=== PATIENT | male | born 1985 | race Caucasian/White ===

== ENCOUNTER 2017-08-14 14:52 | Emergency (ER) | payer SELFPAY ==
[2017-08-14 14:54] VITALS: BP 126/82; PULSE 109; RESP 17; TEMP 37.3; O2SAT 91; BMI 24.4
[2017-08-14 15:04] VITALS: O2SAT 95
--- NOTE | 2017-08-14 15:11 | RAD_ITS ---
STUDY: X-RAY CHEST REASON FOR EXAM: Male, 32 years old. Cough for 2 weeks. TECHNIQUE: PA and lateral views of the chest. COMPARISON: None. FINDINGS: The lungs are mildly hyperexpanded. There is no focal mass or infiltrate. There is no demonstrated pleural abnormality. Normal size heart. Normal mediastinum and adriane. Normal visualized pulmonary arteries. Normal visualized aortic arch and descending thoracic aorta. Normal visualized thoracic spine. Normal visualized ribs, clavicles, and shoulders. There is no demonstrated abnormality of the visualized soft tissue structures of the upper abdomen. RAD/Chest PA and Lateral IMPRESSION: No acute cardiopulmonary disease. Electronically Signed: Andrade Beth DO at 16:20 EDT Tel [phone], Service support ,
--- NOTE | 2017-08-14 15:25 | ED.VISSUMM ---
- ER Visit Summary Date of Service: 08/14/17 Chief Complaint: Shortness of breath History of Present Illness: The patient is a 32 M states that year ago he began to have asthma-like symptoms. He visited with his family doctor was placed on Flovent. He was doing okay until 2 weeks ago. He saw his doctor for a cough and worsening shortness of breath. He feels tightness in his chest when he goes to take a breath. He notes no sputum production. No fevers. He was placed on albuterol MDI and he has been using it several times a day but states he seems to be worsening. He denies any rhinorrhea or postnasal drip. He is a non-smoker and has not had formal pulmonary testing. Physical Examination: Afebrile vital signs are stable Gen: Well-nourished well-developed Head: Normocephalic atraumatic Eyes: Perrl EOMI ENT: TMs clear no rhinorrhea moist mucous membranes Neck: Supple no lymphadenopathy no JVD nontender CVS: Regular rate rhythm no murmurs normal S1-S2 triage heart rate of 101. On my examination he is 95. Respiratory: No distress patient has an expiratory wheeze that improves with coughing patient has diminished breath sounds chest nontender Abdomen: Soft nontender nondistended normal bowel sounds no masses Back: Nontender Extremity: Nontender no edema Skin: Normal color no rash Neuro: alert orientated ?3 CN II-XII intact normal strength sensation reflexes gait cerebellar Psych: Normal affect normal mood Test Results: Chest x-ray was obtained. Emergency Department Course and Treatment: He received a DuoNeb and albuterol. Repeat examination shows the patient have improved aeration still with a slight expiratory wheeze at the end of expiration bilaterally. Patient now recalls that one week ago he was sick. He went to an emergency room where he was diagnosed with influenza. He states he was placed on Tamiflu, prednisone, and an antibiotic. He did mention this before because he wanted to see what my opinion was. My recommendation is that he will need formal pulmonary testing as he has not had this. I am going to refer him to pulmonology. I recommend a tapering dose of steroids. Continued use of his inhaler. Impression: 1. Bronchospasm This note was generated with [employer] dictation software. It may contain incorrect words, spelling, and punctuation that were not noted in review of the chart prior to signing ED Disposition - Plan for ED Patient: Disposition: Home or Assisted Living Chief Complaint: Cough Instructions: ED Wheezing Prescriptions: Prednisone [Deltasone] 60 mg PO DAILY #15 tab Referrals: Mulugeta March MD [Primary Care Provider] - Guy Knight DO [STAFF PHYSICIAN] - (CALL TO ARRANGE FOLLOW UP)
[2017-08-14] MEDS: Ipratropium/Albuterol Sulfate 3 ML AMPUL.NEB INHALATION (15:26)
[2017-08-14] MEDS: Albuterol 2.5 MG/3 ML VIAL.NEB. INHALATION (15:26)
[2017-08-14 15:30] VITALS: PULSE 109; RESP 18
[2017-08-14 16:48] VITALS: BP 120/86; PULSE 107; RESP 16; O2SAT 94
== END 2017-08-14 16:49 | disposition home or self-care (01) ==
PROVIDERS: Emergency Provider Emergency Medicine; Family Provider Family Medicine; PCP Family Medicine
DX: J98.01 Acute bronchospasm (principal); J45.909 Unspecified asthma, uncomplicated; Z79.51 Long term (current) use of inhaled steroids
CPT/HCPCS: 71046; 94640; 99282

== ENCOUNTER → 2017-10-01 13:40 | Outpatient (CLI) | payer SELFPAY ==
--- NOTE | 2017-10-02 07:12 | PFTCOMP ---
COMPLETE PULMONARY FUNCTION TEST INTERPRETATION Brief HPI: Patient is a 32 year old male, currently under the care of Dr. Knight, who presents to [facility] for complete pulmonary function tests secondary to diagnosis of dyspnea. Respiratory therapist reports good effort and reproducible results. Interpretation: Forced expiration spirometry shows no large airways obstructive ventilatory defect with an FEV1 of 91% predicted. There is no significant bronchodilator response by strict ATS criteria. Spirograms are of good quality and plateau normally. The respiratory flow volume loop shows a normal pattern. Lung volumes by body plethysmography show a normal total lung capacity at 7.19 L, 98% predicted. All other lung volumes are within normal limits. Diffusion capacity by carbon monoxide is normal at 79% predicted. The airway resistance is normal. No previous pulmonary function tests were available for review. Impression: These pulmonary function tests are grossly within normal limits. There is some improvement following bronchodilators, but this does not reach clinical significance by ATS criteria. Consider bronchoprovocation study if asthma is a consideration.
== END ==
PROVIDERS: Family Provider Family Medicine; PCP Family Medicine; Visit Provider Internal Medicine Critical Care Medicine
DX: R06.02 Shortness of breath (principal)
CPT/HCPCS: 94060; 94726; 94729

== ENCOUNTER → 2017-10-07 13:31 | Outpatient (CLI) | payer OTHER, SELFPAY ==
[2017-10-07 15:07] LABS: Absolute Lymphocyte Count 1.84 X10^3/ul (0.83-4.51); Absolute Neutrophil Count 4.1 X10^3/uL (2.0-7.7); Basophil# 0.02 X10^3/uL; Basophil% 0.3 % (0-1); Eosinophil# 0.85 X10^3/uL; Eosinophils% 11.6 % (0-5); Hematocrit 47.3 % (40-54); Hemoglobin 15.5 g/dl (13.0-16.5); Lymphocyte # 1.84 X10^3/ul (4.0); Lymphocyte % 25.1 % (19-41); Mean Corp Hgb Conc 32.8 g/gl (32-36); Mean Corpuscular Hgb 29.1 pg (27.0-32.0); Mean Corpuscular Volume 88.7 fL (80-94); Mean Platelet Vol. 8.5 fl (6.2-12.0); Monocyte# 0.53 X10^3/uL; Monocyte% 7.2 % (0-10); Neutrophil # 4.08 X10^3/uL (2.7-7.7); Neutrophil % 55.7 % (47-70); Platelet Count 273 K/mm3 (150-450); RBC Distribution Width CV 13.3 % (11.6-14.6); RBC Distribution Width SD 42.7 fl (35.1-43.9); Red Blood Count 5.33 M/mm3 (4.6-6.2); White Blood Count 7.3 K/mm3 (4.4-11.0)
[2017-10-07 15:08] LABS: POSITIVE COUNT NO; POSITIVE DIFFERENTIAL NO; POSITIVE MORPHOLOGY NO
[2017-10-12 07:08] LABS: Alternaria alternata <0.10 kU/L (Class 0); Bermuda Grass <0.10 kU/L (Class 0); Bluegrass, Kentucky <0.10 kU/L (Class 0); Cat Hair/Dander, Standard <0.10 kU/L (Class 0); D farinae Mite <0.10 kU/L (Class 0); D pteronyssinus <0.10 kU/L (Class 0); Dog Epithelia 0.11 kU/L (Class 0/I); Elm, American White <0.10 kU/L (Class 0); Oak, White <0.10 kU/L (Class 0); Plantain, English <0.10 kU/L (Class 0); Ragweed, Short/Common <0.10 kU/L (Class 0)
[2017-10-12 14:07] LABS: Aspirgillus flavus Negative (Neg:<1:1); Aspirgillus fumigatus Negative (Neg:<1:1); Aspirgillus niger Negative (Neg:<1:1)
[2017-10-13 08:05] LABS: Immunoglobulin E 96 IU/mL (0-100)
== END ==
PROVIDERS: Family Provider Family Medicine; PCP Family Medicine; Visit Provider Nurse Practitioner Acute Care
DX: J30.9 Allergic rhinitis, unspecified (principal)
CPT/HCPCS: 36415; 82785; 85025; 86003; 86606

== ENCOUNTER 2018-07-21 05:36 | Observation (INO) | payer OTHER, SELFPAY ==
[2018-05-19 13:05] VITALS: BMI 25.1
[2018-07-21] VITALS (18 sets, daily range): BP systolic 116–137; BP diastolic 62–74; PULSE 83–122; RESP 12–24; TEMP 36–37.1; O2SAT 91–96; BMI 26.2; BMI 25.6
--- NOTE | 2018-07-21 05:48 | RAD_ITS ---
STUDY: X-RAY CHEST REASON FOR EXAM: Male, 33 years old. Cough TECHNIQUE: Frontal and lateral views of the chest. COMPARISON: 08/14/2017 FINDINGS: The lungs are clear and expanded. There is no demonstrated pleural abnormality. Normal size heart. Normal mediastinum and adriane. Normal visualized pulmonary arteries. Normal visualized aortic arch and descending thoracic aorta. Normal visualized thoracic spine. Remote right rib trauma. There is no demonstrated abnormality of the visualized soft tissue structures of the upper abdomen. RAD/Chest PA and Lateral IMPRESSION: No acute pulmonary findings. Electronically Signed: Donte Matias MD at 6:52 EST Tel , Service support ,
[2018-07-21] MEDS: Albuterol 2.5 MG/3 ML VIAL.NEB. INHALATION (06:02)
[2018-07-21] MEDS: Ipratropium/Albuterol Sulfate 3 ML AMPUL.NEB INHALATION ×6 (06:02→22:55)
--- NOTE | 2018-07-21 07:02 | ED.VISSUMM ---
- ER Visit Summary Date of Service: 07/21/18 Chief Complaint: Shortness of breath History of Present Illness: The patient is a 33 M who presents with shortness of breath. He reports a recent current URI-like illness with congestion rhinorrhea productive cough. He complains of headache. States his chest is sore from coughing. He complains of worsening shortness of breath since yesterday. No vomiting no diarrhea no fever. Physical Examination: Initial pulse ox 93% on room air heart rate 108 respiratory rate 24 Moist mucous membranes Heart regular rhythm tachycardia Inspiratory and expiratory wheezing but able to speak in full sentences no retractions no distress Abdomen soft Alert Test Results: Two-view chest x-ray shows no acute findings. Emergency Department Course and Treatment: Patient was treated with albuterol and Atrovent aerosols. On reevaluation he states that he still feels short of breath but is maintaining a pulse ox of 93%. Heart rate is about 110. He will be given another aerosol and first dose of prednisone. He will be discharged with a course of 5 days of prednisone. He understands to return for new or worsening symptoms. All questions answered bedside. Patient agreeable to this plan. Patient discharged. Treatment Plan: [] Disposition: Discharge Impression: Asthma exacerbation This note was generated with [employer] dictation software. It may contain incorrect words, spelling, and punctuation that were not noted in review of the chart prior to signing ED Disposition - Plan for ED Patient: Referrals: Mulugeta March DO [Primary Care Provider] -
--- NOTE | 2018-07-21 07:04 | ED.DEP ---
ED Disposition - Plan for ED Patient: Instructions: ED Bronchitis Asthmatic Prescriptions: Prednisone [Deltasone] 60 mg PO DAILY #15 tab Referrals: Mulugeta March DO [Primary Care Provider] -
[2018-07-21] MEDS: predniSONE 20 MG Tablet 60 MG PO (07:11)
[2018-07-21] MEDS: Oseltamivir Phosphate 75 MG Capsule PO (07:30)
[2018-07-21 07:46] LABS: Absolute Lymphocyte Count 1.15 X10^3/ul (0.83-4.51); Absolute Neutrophil Count 9.2 X10^3/uL (2.0-7.7); Basophil# 0.02 X10^3/uL; Basophil% 0.2 % (0-1); Eosinophil# 0.41 X10^3/uL; Eosinophils% 3.5 % (0-5); Hematocrit 46.5 % (40-54); Lymphocyte # 1.15 X10^3/ul (4.0); Lymphocyte % 9.9 % (19-41); Mean Corp Hgb Conc 32.3 g/gl (32-36); Mean Corpuscular Hgb 29.1 pg (27.0-32.0); Mean Corpuscular Volume 90.1 fL (80-94); Mean Platelet Vol. 8.3 fl (6.2-12.0); Monocyte# 0.77 X10^3/uL; Monocyte% 6.6 % (0-10); Neutrophil # 9.21 X10^3/uL (2.7-7.7); Neutrophil % 79.5 % (47-70); Platelet Count 290 K/mm3 (150-450); RBC Distribution Width CV 13.8 % (11.6-14.6); RBC Distribution Width SD 44.7 fl (35.1-43.9); Red Blood Count 5.16 M/mm3 (4.6-6.2); White Blood Count 11.6 K/mm3 (4.4-11.0)
[2018-07-21 07:49] LABS: POSITIVE COUNT NO; POSITIVE DIFFERENTIAL NO; POSITIVE MORPHOLOGY NO
[2018-07-21 07:53] LABS: Anion Gap 9 (5-15); BUN 11 mg/dL (7-18); BUN/Creat Ratio 13.6 RATIO (10-20); Calcium,Total 8.9 mg/dL (8.5-10.1); Chloride 108 mmol/L (98-107); Creatinine, Serum 0.81 mg/dL (0.70-1.30); EST Glomerular Filtration Rate 116 mL/min (>60); Est Glom Filt Rate - Afr Amer 141 mL/min (>60); Estimated Creatinine Clearance 136.86 ml/min; Glucose 94 mg/dL (74-106); Sodium Level 143 mmol/L (136-145)
[2018-07-21 07:56] LABS: Allen Test POS; Base Excess -3 mmol/L (-2 to +2); Blood Gas Specimen Type ART; O2 Delivery Device Nasal Can; PO2 65 mmHG (75-100); SITE L Radial; SO2 92 % (95-99); Time Given 745; Total Carbon Dioxide 23 mmol/L; pCO2 36.9 mmHg (35-45); pH 7.38 (7.35-7.45)
[2018-07-21] MEDS: Loratadine 10 MG Tablet PO (11:25)
[2018-07-21] MEDS: Montelukast 10 MG Tablet PO (11:25)
[2018-07-21] MEDS: guaiFENesin 1,200 MG Tablet 1200 MG PO ×2 (11:25→22:10)
--- NOTE | 2018-07-21 11:28 | PCM.HP.STD ---
History of Present Illness Date of Admission: 07/21/18 Chief Complaint: shortness of breath, wheezing The patient is a 33 year old M with past medical history of asthma. He was admitted through the ED on 07/21/2018 with a complaint of shortness of breath, wheezing and a nonproductive cough which have been going on for 1 day. Symptoms worsen progressively he had assisted rhinorrhea and sore throat. He states that his child had had a similar upper respiratory tract symptoms. Symptoms were not improving with use of incentive inhalers so he decided to come into the ED. In the ED, he was found to be tachypneic and tachycardic and required up to 2-3 L of oxygen saturating well. Chest x-ray done showed no acute cardiopulmonary findings. He was given breathing treatments and plan was to discharge him from ED home the patient still remains short of breath and so he is been admitted to be managed for acute asthma exacerbation likely precipitated by an upper respiratory tract infection. [] Past Medical History Past Medical History (Chronic Problems): Chronic Problems (Last Reviewed 05/19/18 @ 13:04 by Lidia Dover) Allergic rhinitis (Chronic) Medical History: Medical History (Last Reviewed 05/19/18 @ 13:04 by Lidia Dover) Allergic rhinitis (Chronic) J30.9 SOB (shortness of breath) (Acute) R06.02 Allergies No Known Allergies Allergy (Verified 07/21/18 05:39) Home Medications: Ambulatory Orders Medication Instructions Recorded alprazolam 0.5 mg tablet 1 mg PO TID PRN tab 09/03/17 loratadine 10 mg tablet 10 mg PO QDAY #30 tab 04/23/18 fluticasone 200 mcg-vilanterol 25 1 inh INHALATION QDAY #1 device 07/18/18 mcg/dose powder for inhalation Fluoxetine HCl 20 mg PO BID 07/21/18 Montelukast [Singulair] 10 mg PO DAILY 07/21/18 Prednisone [Deltasone] 60 mg PO DAILY #15 tab 07/21/18 Surgical History: no surgical history Psychiatric History: Depression Lives: With Family Smoking Status: Never smoker Tobacco Use: Non-smoker Alcohol: None - *Family History Maternal History Items: No pertinent history Paternal History Items: No pertinent history Review of Systems Constitutional: Reports: Malaise, Weakness, Fatigue. Denies: Chills, Fever, Weight Change Eyes: Denies: Blurred vision HEENT: Denies: Head Aches, Sinus Congestion, Sinus Drainage Cardiovascular: Denies: Chest Pain, Edema, Heaviness, Light Headedness, Palpitations Respiratory: Reports: Cough, Shortness of Breath, Shortness of breath at rest, Shortness of breath upon exertion, Wheezing. Denies: Hemoptysis, Pleuritic Pain Gastrointestinal: Denies: Abdominal Pain, Nausea, Vomiting Genitourinary: Denies: Dysuria Musculoskeletal: Reports: Arm Pain Skin: Denies: Rash, Wounds Neurological: Denies: Numbness, Tingling, Focal weakness Psychiatric: Denies: Anxiety, Depression, Homicidal Ideations, Suicidal Ideations Hematologic/ Lymphatic: Denies: Easy Bruising, Easy Bleeding VTE Information - Inpt Only VTE Present on Admission: No VTE Pharm Prophylaxis ordered?: Yes - Physical Exam General: Alert, Oriented x3, Cooperative, - - in mild respiratory distress HEENT: Atraumatic, PERRLA, EOMI, Normocephalic Oral: Dry Mucosa Neck: Supple, No JVD, Negative Carotid Bruits Lungs: - - bilateral wheezing and coarse rhonchi in all lung griffith. tachypneic, able to complete sentences, mild use of accessory muscles of respiration Cardiovascular: Normal S1, Normal S2, No murmurs, Tachycardic Abdomen: Bowel Sounds Present, Soft, Non Tender, Non-Distended, No Hepato-splenomegaly Extremities: No clubbing, No cyanosis, No edema, Capillary Refill Less than 3 Seconds Skin: No rashes, No breakdown Musculoskeletal: No Tenderness to Palpation of Joints or Extremities Lymphatic: No Cervical, Supraclavicular, or Inguinal Adenopathy Neurological: Cranial nerves II-XII grossly intact, Neuro grossly intact, Motor Exam 5/5 strength throughout Psych/Mental Status: Normal Affect, Appropriate, Alert and oriented to time, place, person, mood and affect Vital Signs Temp Pulse Resp BP Pulse Ox 98.7 F 109 H 18 123/72 H 91 07/21/18 08:11 07/21/18 08:11 07/21/18 08:11 07/21/18 08:11 07/21/18 08:11 Oxygen Flow Rate (L/min) 2 Oxygen Delivery Method Nasal Cannula Weight: 183 lb 13.848 oz Body Mass Index (BMI) 25.6 Laboratory Tests Past 24 Hrs 07/21/18 07/21/18 07/21/18 07:27 07:27 07:51 WBC 11.6 H RBC 5.16 Hgb 15.0 Hct 46.5 MCV 90.1 MCH 29.1 MCHC 32.3 RDW 13.8 RDW Differential 44.7 H Plt Count 290 MPV 8.3 Immature Gran % (Auto) 0.300 Neut % (Auto) 79.5 H Lymph % (Auto) 9.9 L Greer % (Auto) 6.6 Eos % (Auto) 3.5 Baso % (Auto) 0.2 Absolute Neuts (auto) 9.2 H Absolute Lymphs (auto) 1.15 Total Counted Not Reportable Specimen Type ART Sample Site L Radial pH 7.38 Bicarbonate Actual 22.0 POC Total CO2 23 Base Excess -3 L O2 Saturation 92 L ABG pCO2 36.9 ABG pO2 65 L Cecil Test POS O2 Delivery Device Nasal Can Liter Flow 2.0 Blood Gas Notified Whom ED Blood Gas Notified Time 745 Sodium 143 Potassium 4.0 Chloride 108 H Carbon Dioxide 26.0 Anion Gap 9 BUN 11 Creatinine 0.81 Estim Creat Clear Calc 136.86 Est GFR (MDRD) Af Amer 141 Est GFR (MDRD) Non-Af 116 BUN/Creatinine Ratio 13.6 Glucose 94 Calcium 8.9 Diagnostic Data Chest X-Ray 07/21/18 05:48 IMPRESSION: No acute pulmonary findings. Electronically Signed: Donte Matias MD at 6:52 EST Tel , Service support , Assessment/Plan All Active Problems (Last Reviewed 05/19/18 @ 13:04 by Lidia Dover) SOB (shortness of breath) (Acute) 33-year-old admitted with a complaint of shortness of breath with wheezing and a dry nonproductive cough. 1. Acute hypoxic respiratory insufficiency due to acute asthma exacerbation admitted with a complaint of worsening SOB and wheezing requiring 2L of oxygen to maintain sats>92% ABG done was WNL CXR showed no acute cardiopulmonary process admit to PCU with telemetry check respiratory panel IV solumedrol 40mg q8 give breathing treatments with duonebs give oxygen and titrate to maintain sats>92% 2. Acute asthma exacerbation due to URTI as under 1. continue singulair 10mg daily and Breo ellipta 3. URTI as under 1. check respiratory panel 4. Depression; on fluoxetine and xanax prn 5. DVT prophylaxis: lovenox Code Visit OBSV E&M: 29141 Initial observation care L3
[2018-07-21] MEDS: ALPRAZolam 0.5 MG Tablet 1 MG PO (11:30)
--- NOTE | 2018-07-21 11:36 | HP.PCM_ITS ---
History of Present Illness Date of Admission: 07/21/18 Chief Complaint: shortness of breath, wheezing The patient is a 33 year old M with past medical history of asthma. He was admitted through the ED on 07/21/2018 with a complaint of shortness of breath, wheezing and a nonproductive cough which have been going on for 1 day. Symptoms worsen progressively he had assisted rhinorrhea and sore throat. He states that his child had had a similar upper respiratory tract symptoms. Symptoms were not improving with use of incentive inhalers so he decided to come into the ED. In the ED, he was found to be tachypneic and tachycardic and required up to 2-3 L of oxygen saturating well. Chest x-ray done showed no acute cardiopulmonary findings. He was given breathing treatments and plan was to discharge him from ED home the patient still remains short of breath and so he is been admitted to be managed for acute asthma exacerbation likely precipitated by an upper respiratory tract infection. [] Past Medical History Past Medical History (Chronic Problems): Chronic Problems (Last Reviewed 05/19/18 @ 13:04 by Lidia Dover) Allergic rhinitis (Chronic) Medical History: Medical History (Last Reviewed 05/19/18 @ 13:04 by Lidia Dover) Allergic rhinitis (Chronic) J30.9 SOB (shortness of breath) (Acute) R06.02 Allergies No Known Allergies Allergy (Verified 07/21/18 05:39) Home Medications: Ambulatory Orders Medication Instructions Recorded alprazolam 0.5 mg tablet 1 mg PO TID PRN tab 09/03/17 loratadine 10 mg tablet 10 mg PO QDAY #30 tab 04/23/18 fluticasone 200 mcg-vilanterol 25 1 inh INHALATION QDAY #1 device 07/18/18 mcg/dose powder for inhalation Fluoxetine HCl 20 mg PO BID 07/21/18 Montelukast [Singulair] 10 mg PO DAILY 07/21/18 Prednisone [Deltasone] 60 mg PO DAILY #15 tab 07/21/18 Surgical History: no surgical history Psychiatric History: Depression Lives: With Family Smoking Status: Never smoker Tobacco Use: Non-smoker Alcohol: None - *Family History Maternal History Items: No pertinent history Paternal History Items: No pertinent history Review of Systems Constitutional: Reports: Malaise, Weakness, Fatigue. Denies: Chills, Fever, Weight Change Eyes: Denies: Blurred vision HEENT: Denies: Head Aches, Sinus Congestion, Sinus Drainage Cardiovascular: Denies: Chest Pain, Edema, Heaviness, Light Headedness, Palpitations Respiratory: Reports: Cough, Shortness of Breath, Shortness of breath at rest, Shortness of breath upon exertion, Wheezing. Denies: Hemoptysis, Pleuritic Pain Gastrointestinal: Denies: Abdominal Pain, Nausea, Vomiting Genitourinary: Denies: Dysuria Musculoskeletal: Reports: Arm Pain Skin: Denies: Rash, Wounds Neurological: Denies: Numbness, Tingling, Focal weakness Psychiatric: Denies: Anxiety, Depression, Homicidal Ideations, Suicidal Ideati ons Hematologic/ Lymphatic: Denies: Easy Bruising, Easy Bleeding VTE Information - Inpt Only VTE Present on Admission: No VTE Pharm Prophylaxis ordered?: Yes - Physical Exam General: Alert, Oriented x3, Cooperative, - - in mild respiratory distress HEENT: Atraumatic, PERRLA, EOMI, Normocephalic Oral: Dry Mucosa Neck: Supple, No JVD, Negative Carotid Bruits Lungs: - - bilateral wheezing and coarse rhonchi in all lung griffith. tachypneic, able to complete sentences, mild use of accessory muscles of respiration Cardiovascular: Normal S1, Normal S2, No murmurs, Tachycardic Abdomen: Bowel Sounds Present, Soft, Non Tender, Non-Distended, No Hepato- splenomegaly Extremities: No clubbing, No cyanosis, No edema, Capillary Refill Less than 3 Seconds Skin: No rashes, No breakdown Musculoskeletal: No Tenderness to Palpation of Joints or Extremities Lymphatic: No Cervical, Supraclavicular, or Inguinal Adenopathy Neurological: Cranial nerves II-XII grossly intact, Neuro grossly intact, Motor Exam 5/5 strength throughout Psych/Mental Status: Normal Affect, Appropriate, Alert and oriented to time, place, person, mood and affect Vital Signs Temp Pulse Resp BP Pulse Ox 98.7 F 109 H 18 123/72 H 91 07/21/18 08:11 07/21/18 08:11 07/21/18 08:11 07/21/18 08:11 07/21/18 08:11 Oxygen Flow Rate (L/min) 2 Oxygen Delivery Method Nasal Cannula Weight: 183 lb 13.848 oz Body Mass Index (BMI) 25.6 Laboratory Tests Past 24 Hrs 07/21/18 07/21/18 07/21/18 07:27 07:27 07:51 WBC 11.6 H RBC 5.16 Hgb 15.0 Hct 46.5 MCV 90.1 MCH 29.1 MCHC 32.3 RDW 13.8 RDW Differential 44.7 H Plt Count 290 MPV 8.3 Immature Gran % (Auto) 0.300 Neut % (Auto) 79.5 H Lymph % (Auto) 9.9 L [place] % (Auto) 6.6 Eos % (Auto) 3.5 Baso % (Auto) 0.2 Absolute Neuts (auto) 9.2 H Absolute Lymphs (auto) 1.15 Total Counted Not Reportable Specimen Type ART Sample Site L Radial pH 7.38 Bicarbonate Actual 22.0 POC Total CO2 23 Base Excess -3 L O2 Saturation 92 L ABG pCO2 36.9 ABG pO2 65 L Cecil Test POS O2 Delivery Device Nasal Can Liter Flow 2.0 Blood Gas Notified Whom ED Blood Gas Notified Time 745 Sodium 143 Potassium 4.0 Chloride 108 H Carbon Dioxide 26.0 Anion Gap 9 BUN 11 Creatinine 0.81 Estim Creat Clear Calc 136.86 Est GFR (MDRD) Af Amer 141 Est GFR (MDRD) Non-Af 116 BUN/Creatinine Ratio 13.6 Glucose 94 Calcium 8.9 Diagnostic Data Chest X-Ray 07/21/18 05:48 IMPRESSION: No acute pulmonary findings. Electronically Signed: Donte Matias MD at 6:52 EST Tel , Service support , Assessment/Plan All Active Problems (Last Reviewed 05/19/18 @ 13:04 by Lidia Dover) SOB (shortness of breath) (Acute) 33-year-old admitted with a complaint of shortness of breath with wheezing and a dry nonproductive cough. 1. Acute hypoxic respiratory insufficiency due to acute asthma exacerbation * admitted with a complaint of worsening SOB and wheezing * requiring 2L of oxygen to maintain sats>92% * ABG done was WNL * CXR showed no acute cardiopulmonary process * admit to PCU with telemetry * check respiratory panel * IV solumedrol 40mg q8 * give breathing treatments with duonebs * give oxygen and titrate to maintain sats>92% * 2. Acute asthma exacerbation due to URTI * as under 1. * continue singulair 10mg daily and Breo ellipta 3. URTI * as under 1. * check respiratory panel * 4. Depression; on fluoxetine and xanax prn 5. DVT prophylaxis: lovenox Code Visit OBSV E&M: 61235 Initial observation care L3
[2018-07-21] MEDS: Acetaminophen 325 MG Tablet 650 MG PO ×2 (12:26→18:29)
[2018-07-21] MEDS: 0.9% NaCl Peripheral Flush Adult/Peds IV ×3 (15:35→22:14)
[2018-07-21] MEDS: FLUoxetine 20 MG Capsule PO (22:10)
[2018-07-22] VITALS (10 sets, daily range): BP systolic 121–130; BP diastolic 66–72; PULSE 85–112; RESP 16–20; TEMP 35.8–36.7; O2SAT 90–95
[2018-07-22] MEDS: Ipratropium/Albuterol Sulfate 3 ML AMPUL.NEB INHALATION ×3 (03:14→11:02)
[2018-07-22] MEDS: 0.9% NaCl Peripheral Flush Adult/Peds IV ×4 (06:20→14:06)
[2018-07-22] MEDS: Acetaminophen 325 MG Tablet 650 MG PO ×2 (06:33→13:01)
[2018-07-22 07:17] LABS: Absolute Lymphocyte Count 0.61 X10^3/ul (0.83-4.51); Absolute Neutrophil Count 11.3 X10^3/uL (2.0-7.7); Basophil# 0.01 X10^3/uL; Basophil% 0.1 % (0-1); Hematocrit 42.4 % (40-54); Hemoglobin 13.9 g/dl (13.0-16.5); Lymphocyte # 0.61 X10^3/ul (4.0); Lymphocyte % 4.8 % (19-41); Mean Corp Hgb Conc 32.8 g/gl (32-36); Mean Corpuscular Hgb 29.6 pg (27.0-32.0); Mean Corpuscular Volume 90.2 fL (80-94); Mean Platelet Vol. 8.3 fl (6.2-12.0); Monocyte# 0.66 X10^3/uL; Monocyte% 5.2 % (0-10); Neutrophil # 11.31 X10^3/uL (2.7-7.7); Neutrophil % 89.7 % (47-70); Platelet Count 294 K/mm3 (150-450); RBC Distribution Width CV 13.7 % (11.6-14.6); RBC Distribution Width SD 44.8 fl (35.1-43.9); White Blood Count 12.6 K/mm3 (4.4-11.0)
[2018-07-22 07:20] LABS: POSITIVE COUNT NO; POSITIVE DIFFERENTIAL NO; POSITIVE MORPHOLOGY NO
[2018-07-22 07:35] LABS: BUN 14 mg/dL (7-18); Creatinine, Serum 0.74 mg/dL (0.70-1.30); Estimated Creatinine Clearance 149.81 ml/min; Glucose 135 mg/dL (74-106)
[2018-07-22 07:36] LABS: Anion Gap 6 (5-15); BUN/Creat Ratio 18.9 RATIO (10-20); Calcium,Total 8.6 mg/dL (8.5-10.1); Chloride 107 mmol/L (98-107); EST Glomerular Filtration Rate 129 mL/min (>60); Est Glom Filt Rate - Afr Amer 155 mL/min (>60); Potassium 4.2 mmol/L (3.5-5.1); Sodium Level 138 mmol/L (136-145)
[2018-07-22] MEDS: guaiFENesin 1,200 MG Tablet 1200 MG PO (10:30)
[2018-07-22] MEDS: Montelukast 10 MG Tablet PO (10:30)
--- NOTE | 2018-07-22 15:05 | DCINST_ITS ---
You will use the following diet at home:: No restrictions Your food should be the consistency of: Regular Your liquids should be the consistency of: Regular/Thin Discharge Activity: Return to Normal Activity Weight Bearing Status: Full weight bearing Instructions: ED Bronchitis Asthmatic Allergies/Adverse Reactions: Allergies No Known Allergies Allergy (Verified 07/21/18 05:39) Medications to take at Discharge alprazolam 0.5 mg tablet 1 mg PO TID PRN tab 09/03/17 loratadine 10 mg tablet 10 mg PO QDAY #30 tab 04/23/18 fluticasone 200 mcg-vilanterol 25 mcg/dose powder for inhalation 1 inh INHALATION QDAY #1 device 07/18/18 Fluoxetine HCl 20 mg PO BID 07/21/18 Montelukast [Singulair] 10 mg PO DAILY 07/21/18 Acetaminophen [Tylenol Tablet] 650 mg PO Q6H PRN PRN tablet 07/22/18 Albuterol Aerosols [Ventolin Aerosols] 2.5 mg INHALATION UD PRN #120 vial 07/22/18 Guaifenesin/Codeine [Robitussin AC] 10 ml PO Q4H PRN PRN 7 Days #8 oz 07/22/18 Levofloxacin [Levaquin] 500 mg PO DAILY #5 tab 07/22/18 Prednisone 10 mg PO UD #30 tab 07/22/18 The following prescriptions were given: Guaifenesin/Codeine [Robitussin AC] 10 ml PO Q4H PRN PRN 7 Days #8 oz PRN Reason: Cough Albuterol Aerosols [Ventolin Aerosols] 2.5 mg INHALATION UD PRN #120 vial PRN Reason: Shortness Of Breath Levofloxacin [Levaquin] 500 mg PO DAILY #5 tab Prednisone 10 mg PO UD #30 tab Primary Care Physician: Mulugeta March DO [Primary Care Provider] - Please follow up with your Primary Care Physician in: next week Test Results: Test results from this visit will be discussed in further detail at your follow- up appointment, if applicable.
--- NOTE | 2018-07-22 15:56 | CASEMGMT ---
Pt's requested that scripts be faxed to [facility] at this time. Per [facility] charge, they were unable to e-scribe previously. is aware to take the hard copies into the pharmacy as they may need them to fill, voices understanding. voices no further questions/concerns/needs at this time. Linda GOODE CM
--- NOTE | 2018-07-27 07:46 | PCM.DC.SUM ---
Discharge Date and Diagnosis Date of Admission: 07/21/18 Date of Discharge: 07/22/18 - Primary Discharge Diagnosis #1 acute asthma flareup secondary to rhinovirus tracheobronchitis #2 acute rhinovirus tracheobronchitis #3 acute hypoxia secondary to #1 and #2 #4 chronic depression - Secondary Discharge Diagnosis Chronic Problems (Last Reviewed 05/19/18 @ 13:04 by Lidia Dover) Allergic rhinitis (Chronic) Hospital Course and Treatment Operations: None Procedures: None Summary of Care Provided: The patient is a 33 year old M was seen in the emergency room at [facility] with a chief complaint of shortness of breath, patient reported a recent upper respiratory infection with productive cough. Examination in the ER showed the patient have a pulse ox of 93% on room air, respiratory rate was elevated at 24, chest x-ray was obtained which showed no acute findings, lab was remarkable for an elevated white blood cell count at 11.6, and an ABG was obtained on 2 L nasal cannula which showed a PO2 of 65. Patient was placed in observation status on PCU for acute hypoxia and acute asthma flareup, respiratory panel was obtained and it showed positive for rhinovirus infection. Patient was given aerosol treatments and IV corticosteroids, his medical status improved. On 07/22/18, he was seen and examined: On examination he appeared in good health and spirits. Vital signs as documented. Skin warm and dry and without overt rashes. Neck without JVD. Lungs-scattered expiratory wheezes were noted. Heart exam notable for regular rhythm, normal sounds and absence of murmurs, rubs or gallops. Abdomen unremarkable and without evidence of organomegaly, masses, or abdominal aortic enlargement. Extremities nonedematous. Neuro: Cranial nerves II through XII are grossly intact, no focal motor deficits were noted, sensation to light touch and pinprick intact. Psych: Patient is alert and oriented x3, he does not appear anxious or depressed On 07/22/18, patient was seen and examined and felt to be in stable condition for discharge home - Physical Exam Vital Signs Temp Pulse Resp BP Pulse Ox 98.0 F 94 18 125/66 H 94 07/22/18 14:04 07/22/18 14:04 07/22/18 14:04 07/22/18 14:04 07/22/18 14:04 Oxygen Flow Rate (L/min) [ 0 AMBULATING on Room Air] Oxygen Flow Rate (L/min) [At 0 REST on Room Air] Oxygen Flow Rate (L/min) 2 Oxygen Delivery Method Room Air Weight: 83.4 kg Body Mass Index (BMI) 25.6 Discharge Activity: Return to Normal Activity Weight Bearing Status: Full weight bearing Home Medications: Medications to take at Discharge alprazolam 0.5 mg tablet 1 mg PO TID PRN tab 09/03/17 loratadine 10 mg tablet 10 mg PO QDAY #30 tab 04/23/18 fluticasone 200 mcg-vilanterol 25 mcg/dose powder for inhalation 1 inh INHALATION QDAY #1 device 07/18/18 Fluoxetine HCl 20 mg PO BID 07/21/18 Montelukast [Singulair] 10 mg PO DAILY 07/21/18 Acetaminophen [Tylenol Tablet] 650 mg PO Q6H PRN PRN tablet 07/22/18 Albuterol Aerosols [Ventolin Aerosols] 2.5 mg INHALATION UD PRN #120 vial 07/22/18 Guaifenesin/Codeine [Robitussin AC] 10 ml PO Q4H PRN PRN 7 Days #8 oz 07/22/18 Levofloxacin [Levaquin] 500 mg PO DAILY #5 tab 07/22/18 Prednisone 10 mg PO UD #30 tab 07/22/18 Following Prescrptions Were Given to Patient: Guaifenesin/Codeine [Robitussin AC] 10 ml PO Q4H PRN PRN 7 Days #8 oz PRN Reason: Cough Albuterol Aerosols [Ventolin Aerosols] 2.5 mg INHALATION UD PRN #120 vial PRN Reason: Shortness Of Breath Levofloxacin [Levaquin] 500 mg PO DAILY #5 tab Prednisone 10 mg PO UD #30 tab Primary Care Physician: Mulugeta March DO [Primary Care Provider] - Please follow up with your Primary Care Physician in: next week Patient Instructions: ED Bronchitis Asthmatic Disposition: Home Medical Necessity - Tobacco Use Smoking Status: Never smoker Tobacco Use: Non-smoker Meaningful Use Info Meaningful Use Diagnoses (Choose all that apply): None applicable Code Visit OBSV E&M: 78039 Observation care discharge
== END 2018-07-22 15:05 | disposition home or self-care (01) ==
LOC: ED 05:58 → PCU 08:09
PROVIDERS: Admitting Provider Student in an Organized Health Care Education/Training Program; Emergency Provider Emergency Medicine; Family Provider Family Medicine; PCP Family Medicine; Visit Provider Internal Medicine
DX: J20.6 Acute bronchitis due to rhinovirus (principal); J45.901 Unspecified asthma with (acute) exacerbation; F32.9 Major depressive disorder, single episode, unspecified; Z23 Encounter for immunization; R09.02 Hypoxemia; Z79.899 Other long term (current) drug therapy; Z79.51 Long term (current) use of inhaled steroids
CPT/HCPCS: 36415; 36600; 71046; 80048; 82803; 85025; 87633; 94640; 99218; 99284; 90686; A4216; G0378

== ENCOUNTER 2023-02-28 06:01 | Emergency (ER) | payer OTHER, SELFPAY ==
[2023-02-28 06:02] VITALS: BP 126/82; PULSE 86; RESP 14; TEMP 36.3; O2SAT 98; BMI 25.0
--- NOTE | 2023-02-28 06:13 | RAD_ITS ---
EXAM: XR CHEST, 1 VIEW CLINICAL INDICATION: chest pain -- -- PT C/O CP AND SOB chest pain -- -- PT C/O CP AND SOB TECHNIQUE: Frontal view of the chest. COMPARISON: 07/21/2018.. FINDINGS: LUNGS AND PLEURAL SPACES: Lungs are mildly underexpanded. There is mild bilateral basilar atelectasis, left greater than right. Early left lower lobe infiltrate is not excluded. No pneumothorax. No effusion. HEART: Unremarkable. Cardiac silhouette not enlarged. MEDIASTINUM: Central airways and mediastinal contour are unremarkable. BONES/JOINTS: Unremarkable. SOFT TISSUES: Unremarkable. RAD/Chest 1 View (Portable) IMPRESSION: 1. Limited exam due to shallow inspiration. 2. Mild bilateral basilar atelectasis. Cannot exclude early left lower lobe infiltrate. Electronically Signed: Steven Brice MD at 6:42 EDT Reading Location ID and State: [facility] / [place] , Service support ,
--- NOTE | 2023-02-28 06:13 | ED.VIS.CHEST ---
HPI History of Present Illness Chief Complaint: Chest Pain Narrative Narrative: 37-year-old male who denies significant past medical history except for asthma, presents with approximately 2 days of left-sided chest pain, somewhat worse with breathing. He states he may have felt a twinge of pain in the left side of his chest sometime last week. Over the last 2 days it has gotten worse. There may be a pleuritic component to it and it feels sharp and stabbing at times, and he feels short of breath. He denies any fevers or chills. No cough. He states that walking across the room does not make it feel better, but not necessarily worse. He denies any DVT or PE risk factors. He states that his entry driver operator mention that it may be pleurisy on the way up here. He presents with continued left-sided chest pain and shortness of breath. No diaphoresis. [facility] Medical History Allergic rhinitis SOB (shortness of breath) Home Medications alprazolam 0.5 mg tablet (Xanax) 1 mg PO TID PRN anxiety 09/03/17 [History Last Taken Unknown] montelukast 10 mg tablet 10 mg PO DAILY #30 tabs 06/12/22 [Rx Last Taken Unknown] cetirizine 10 mg tablet (24Hour Allergy) 10 mg PO DAILY PRN allergic reaction 02/28/23 [History Last Taken Unknown] fluticasone furoate 100 mcg-vilanterol 25 mcg/dose inhalation powder (Breo Ellipta) 1 inh inhalation PRN SOB 02/28/23 [History Last Taken Unknown] Allergy/AdvReac Type Severity Reaction Status Date / Time No Known Allergies Allergy Verified 06/12/22 13:41 Social History Smoking Status: Never smoker second hand exposure: No alcohol intake: never substance use type: does not use caffeine: Yes what type of physical activity do you participate in: other ROS ROS ED ROS Narrative Constitutional: No fever, no chills. HEENT: No sore throat. No neck pain. No loss of vision. No rhinorrhea. Cardiovascular: Left-sided chest pain. Questionably pleuritic no palpitations. No pedal edema. Respiratory: No cough, positive shortness of breath. Abdominal: No abdominal pain. No nausea. No vomiting. Genitourinary: No dysuria. No hematuria. Musculoskeletal: No myalgias. No arthralgias. Neurologic: No headaches. No dizziness. No lightheadedness. Skin: No rash. No change in color. Psychiatric: No depression. No anxiety. EXAM Physical Exam Narrative Exam Narrative: Afebrile. Vital signs noted. HEENT: Normocephalic. Atraumatic. PERRL, EOMI. Neck soft and supple. No point tenderness or step off. Cardiovascular: Regular rate and rhythm. No murmurs, rubs, or gallops appreciated. Respiratory: No tachypnea. Lungs clear to auscultation bilaterally. Gastrointestinal: Abdomen soft, nontender, with normoactive bowel sounds. No rebound or guarding. Neurological: Awake. Alert. Nonfocal, nonlateralizing. Skin: No rash. Normal color. No pallor. Musculoskeletal: No pedal edema. Full range of motion extremities. Const Vital Signs: 02/28/23 06:02 02/28/23 06:09 02/28/23 06:23 Temperature 97.4 F L Temperature Source Temporal Pulse Rate 86 Respiratory Rate 14 Respiratory Effort Short of Breath Blood Pressure 126/82 H Blood Pressure Mean 96 Pulse Ox 98 Oxygen Delivery Method Room Air Room Air Heart Score History: Slightly/Non-Suspicious ECG: Normal Age: </= 45 years Risk Factors: No Risk Factors Score: 0 MDM MDM MDM Narrative Medical decision making narrative: In the differential diagnosis is acute coronary syndrome/STEMI/non-STEMI. Given his left-sided chest pain with questionable pleuritic component, also the differential is pulmonary embolism versus pleurisy. Additionally, pneumonia and pneumothorax are in the differential, but the history and physical does not necessarily support this as he does not have a cough, or fever, additionally, he is not hypoxic and his pulse ox is 98% on room air. With his history of asthma, he may be having an asthma exacerbation but his lungs are clear to auscultation bilaterally and he is speaking in full sentences. Chest pain work-up was pursued. EKG was obtained and interpreted by myself independently as normal sinus rhythm at 90 bpm without ectopy or acute ST changes. No STEMI. I will obtain a CBC, BMP, serial troponins, and a D-dimer. Chest x-ray in 1 view will also be obtained. I reviewed his initial laboratory work that has returned and he has a normal white count of 10.4, hemoglobin normal at 14.5, platelet count normal at 267. D-dimer is negative at less than 0.27. I reviewed his chest x-ray in 1 view and see no evidence of pneumonia or pneumothorax. Radiology report is pending. I reviewed the rest of his laboratory work and he has a grossly unremarkable electrolyte panel with sodium of 139 and potassium normal at 3.8. Glucose is appropriately elevated at 148 with a normal anion gap of 5. His initial high-sensitivity troponin is less than 3. I have low suspicion for pulmonary embolism or ischemic cardiac disease based on his initial biomarkers. As patient was seen near the end of the shift, he will require a delta troponin. Patient will be signed out to the oncoming morning physician who will check a second troponin and radiology report of imaging. Currently, patient is in stable condition. Lab Data Attestation: I reviewed the patient's lab results. Labs: Laboratory Results - last 24 hr 02/28/23 06:10 WBC 10.4 RBC 4.99 Hgb 14.5 Hct 44.2 MCV 88.6 MCH 29.1 MCHC 32.8 RDW Std Deviation 41.8 RDW Coeff of Ever 12.8 Plt Count 267 MPV 8.0 Immature Gran % (Auto) 0.500 Neut % (Auto) 80.9 H Lymph % (Auto) 10.4 L Caswell % (Auto) 6.8 Eos % (Auto) 1.2 Baso % (Auto) 0.2 Absolute Neuts (auto) 8.4 H Absolute Lymphs (auto) 1.08 Nucleated RBC % 0 D-Dimer Quant (PE/DVT) < 0.27 L Sodium 139 Potassium 3.8 Chloride 106 Carbon Dioxide 28.0 Anion Gap 5 BUN 9 Creatinine 0.80 Estim Creat Clear Calc 133.34 Est GFR (MDRD) Af Amer 138 Est GFR (MDRD) Non-Af 114 BUN/Creatinine Ratio 11.2 Glucose 148 H Calcium 9.0 Troponin I High Sens < 3 L Discharge Plan Triage Chief Complaint: Chest Pain ED Provider: Sandeep Ya Dx/Rx/DC Orders Prescriptions: No Action alprazolam [Xanax] 0.5 mg tablet 1 mg PO TID PRN (Reason: anxiety) montelukast 10 mg tablet 10 mg PO DAILY Qty: 30 11RF cetirizine [24Hour Allergy] 10 mg tablet 10 mg PO DAILY PRN (Reason: allergic reaction) fluticasone furoate-vilanterol [Breo Ellipta] 100-25 mcg/dose blister with device 1 inh INHALATION PRN Primary Care Provider: Mulugeta March Referrals: Mulugeta March DO [Primary Care Provider] -
[2023-02-28] MEDS: Aspirin 81 MG TAB.CHEW 324 MG PO (06:17)
[2023-02-28 06:19] LABS: Absolute Lymphocyte Count 1.08 X10^3/uL (0.83-4.51); Absolute Neutrophil Count 8.4 X10^3/uL (2.0-7.7); Basophil# 0.02 X10^3/uL; Basophil% 0.2 % (0-1); Eosinophil# 0.12 X10^3/uL; Eosinophils% 1.2 % (0-5); Hematocrit 44.2 % (40-54); Hemoglobin 14.5 g/dL (13.0-16.5); Lymphocyte # 1.08 X10^3/ul (0.83-4.51); Lymphocyte % 10.4 % (19-41); Mean Corp Hgb Conc 32.8 g/dL (32-36); Mean Corpuscular Hgb 29.1 pg (27.0-32.0); Mean Corpuscular Volume 88.6 fL (80-94); Monocyte% 6.8 % (0-10); NRBC Flagged by Analyzer 0 % (0-5); Neutrophil % 80.9 % (47-70); Platelet Count 267 K/mm3 (150-450); RBC Distribution Width CV 12.8 % (11.6-14.6); RBC Distribution Width SD 41.8 fl (35.1-43.9); Red Blood Count 4.99 M/mm3 (4.6-6.2); White Blood Count 10.4 K/mm3 (4.4-11.0)
[2023-02-28 06:33] LABS: D-Dimer Quantitative (DVT/PE) < 0.27 FEU/ug/m (0.27-0.49)
[2023-02-28 06:37] LABS: Anion Gap 5 (5-15); BUN 9 mg/dL (7-18); BUN/Creat Ratio 11.2 RATIO (10-20); Chloride 106 mmol/L (98-107); EST Glomerular Filtration Rate 114 mL/min (>60); Est Glom Filt Rate - Afr Amer 138 mL/min (>60); Estimated Creatinine Clearance 133.34 ml/min; Glucose 148 mg/dL (74-106); Potassium 3.8 mmol/L (3.5-5.1); Sodium Level 139 mmol/L (136-145); Troponin-I HS (w/2H Reflex) < 3 pg/mL (3.0-78.0)
[2023-02-28] MEDS: Ketorolac 30 MG/ML Syringe IV (06:44)
[2023-02-28 08:02] VITALS: BP 114/74; PULSE 74; RESP 16; O2SAT 99
[2023-02-28 08:17] LABS: Reflex Troponin-HS? (from REC) Y
[2023-02-28 08:43] LABS: Troponin-I HS < 3 pg/mL (3.0-78.0)
[2023-02-28] MEDS: Lidocaine 5% Patch 1 PATCH TOPICAL (09:29)
[2023-02-28 09:30] VITALS: BP 128/78; PULSE 72; RESP 16; O2SAT 98
== END 2023-02-28 09:57 | disposition home or self-care (01) ==
PROVIDERS: Emergency Provider Emergency Medicine; PCP Family Medicine; Visit Provider Emergency Medicine
DX: R07.9 Chest pain, unspecified (principal)
CPT/HCPCS: 71045; 80048; 84484; 85025; 85379; 93005; 96374; 99283; A4216